=== PATIENT | male | born 1945 | race Two or more races ===

== ENCOUNTER → 2023-06-01 | Outpatient (CLI) | payer MEDICARE, OTHER, SELFPAY ==
--- NOTE | 2023-06-01 08:20 | CDU_ITS ---
Reason For Study: Amaurosis fugax Rt. Velocities/BP Lt. Velocities/BP Prox CCA 92.9/20.1 cm/sec. Prox CCA 83.9/17.9 cm/sec. Mid CCA 58.9/17.3 cm/sec. Mid CCA 69.6/16.8 cm/sec. Dist CCA 47.5/11.6 cm/sec. Dist CCA 61.9/13.5 cm/sec. Prox ICA 43.9/12.5 cm/sec. Prox ICA 52/12.4 cm/sec. Mid ICA 74.4/21.2 cm/sec. Mid ICA 66.3/19 cm/sec. Dist ICA 58.3/21.6 cm/sec. Dist ICA 76.2/23.4 cm/sec. Rt. ICA/CCA = 1.26. Lt. ICA/CCA = 1.09. Prox ECA 98.1/12.4 cm/sec. Prox ECA 70.8/11.9 cm/sec. Rt. Vert. 37.9/10.7 cm/sec. Lt. Vert. 28.7/5.2 cm/sec. Right Extracranial There is homogeneous, smooth atherosclerotic plaque noted in the right common carotid artery. There is heterogeneous, irregular atherosclerotic plaque noted in the right internal carotid artery. There is intimal thickening but no significant atherosclerotic plaque noted in the right external carotid artery. Antegrade flow is noted in the right vertebral artery. Left Extracranial There is intimal thickening but no significant atherosclerotic plaque noted in the left common carotid artery. There is heterogeneous, irregular atherosclerotic plaque noted in the left internal carotid artery. There is heterogeneous, irregular atherosclerotic plaque noted in the left external carotid artery. Antegrade flow is noted in the left vertebral artery. Procedure This is a Carotid Duplex examination using B-mode, color flow and specral Doppler. Carotid Duplex [id number]. Exam performed in department. VL/Carotid Duplex Ultrasound Interpretation Summary Mild (<50%) stenosis right extracranial internal carotid. Mild (<50%) stenosis left extracranial internal carotid. Patent and antegrade vertebrals bilaterally. Ordering Physician: Carmelo Sumner Referring Physician: Whit Wong Performed By: Alba Wang RVT
--- OUTSIDE RECORDS SUMMARY | 2023-06-01 08:20 | XMS RPT_ITS | CCD ---
Author Name Unknown Address [address] [place] [address] Organization [facility] Care Team Providers Care Curriculum Development Specialist Name Role Phone YOSEF BLOOD Babak Unavailable Unavailable *SELF, REFERRED Unavailable Unavailable Augusto Andrew Unavailable Unavailable Shawn Wong Primary Care Provider Shawn Wong Primary Care Provider Shawn Wong Primary Care Provider Melo Springer MD Unavailable Mouck REINFORCING BAR SETTER.Michael LOPEZ Unavailable Mouck REINFORCING BAR SETTER.Michael LOPEZ Unavailable Shawn Wong Primary Care Provider Melo Springer MD Unavailable Mouck REINFORCING BAR SETTER.Michael LOPEZ Unavailable Mouck REINFORCING BAR SETTER.Gokul LOPEZin Unavailable TAZ ZENAB Attending Unavailable SHAWN WONG Primary Care Unavailable TAZ ZENAB Referring Unavailable SHAWN WONG Primary Care Unavailable MAKENZIE VILLARREAL Attending Unavailable Shawn Wong MD Primary Care Provider Allergies Allergy Classification Reported Allergen(s) Allergy Type Date of Onset Reaction(s) Facility (10 sources) oxyCODONE; Translations: [OXYCODONE] Drug Allergy 11-29-2018 [facility] [place] (9 sources) Grass pollen; Translations: [GRASS POLLEN] Propensity to adverse reactions to drug 05-28-2019 [facility] (9 sources) Mold Extract; Translations: [MOLD] Drug Allergy 05-24-2019 Unknown [facility] Medications Current Medications Medication Drug Class(es) Dates Sig (Normalized) Sig (Original) amLODIPine 10 mg oral tablet (1 source) Dihydropyridine Calcium Channel Sumi Start: 05-03-2019 amLODIPine (NORVASC) 10 MG tablet 1 tab(s) 0 05/03/2019 Active B Complex-C (SUPER B COMPLEX PO) (3 sources) B Complex-C (SUP ER B COMPLEX PO) Take by mouth 0 Active Calcium Carbonate (2 sources) Calcium Carbonat e (CALCIUM 600 PO) Take by mouth 0 Active celecoxib 100 mg oral capsule (3 sources) Nonsteroidal Anti-inflammatory Drug take 1 capsule by mouth twice daily celecoxib (CELEBREX) 100 MG capsule Take 100 mg by mouth 2 times daily 0 Active Multiple Vitamins-Minerals (CENTRUM ADULTS PO) (3 sources) Multiple Vitamins-Minerals (CENTRUM ADULTS PO) Take by mouth 0 Active nitroglycerin 0.4 mg sublingual tablet (1 source) Nitrate Vasodilator Start: 03-25-2020 nitroGLYCERIN (NITROSTAT) 0.[address] 1 tablet under the tongue every 5 minutes as needed for Chest pain 25 tablet 3 03/25/2020 Active Saw Sims, Serenoa repens, (SAW PALMETTO BERRIES PO) (2 sources) take 500 mg by mouth once daily Saw Sims, Serenoa repens, (SAW PALMETTO BERRIES PO) Take 500 mg by mouth daily 0 Active Completed/Discontinued Medications Medication Drug Class(es) Dates Sig (Normalized) Sig (Original) acetaminophen 500 mg oral tablet (8 sources) Start: 05-07-2020 take 2 tablets by mouth every eight hours as needed acetaminophen (TYLENOL) 500 mg tablet Take 1,000 mg by mouth every 8 hours as needed for Pain. 0 05/07/2020 Active Problems Active Problems Problem Classification Problem Date Documented Date Episodic/Chronic Cancer of prostate (11 sources) Malignant tumor of prostate; Translations: [Malignant neoplasm of prostate] Onset: 03-28-2017 03-28-2017 Chronic Complication of device; implant or graft (1 source) Arteriosclerosis of coronary artery bypass graft; Translations: [Atherosclerosis of coronary artery bypass graft(s) without angina pectoris] Chronic Coronary atherosclerosis and other heart disease (18 sources) Angina pectoris; Translations: [Stable angina] Onset: 03-25-2020 03-25-2020 Chronic Disorders of lipid metabolism (2 sources) Hyperlipidemia; Translations: [Mixed hyperlipidemia] 03-25-2020 Chronic Essential hypertension (3 sources) Essential hypertension; Translations: [Essential (primary) hypertension] 03-25-2020 Chronic Occlusion or stenosis of precerebral arteries (4 sources) Bilateral stenosis of carotid arteries; Translations: [Occlusion and stenosis of bilateral carotid arteries] Onset: 06-28-2022 Chronic Past or Other Problems Problem Classification Problem Date Documented Da te Episodic/Chronic Other connective tissue disease (8 sources) Tendinitis of right rotator cuff; Translations: [Other shoulder lesions, right shoulder] Onset: 04-01-2015 05-31-2021 Episodic Other connective tissue disease (8 sources) Full thickness rotator cuff tear; Translations: [Complete rotator cuff tear or rupture of right shoulder, not specified as traumatic] Onset: 04-29-2015 05-31-2021 Episodic Other connective tissue disease (8 sources) Bursitis of olecranon of left elbow; Translations: [Olecranon bursitis, left elbow] Onset: 01-04-2017 01-04-2017 Episodic Other connective tissue disease (8 sources) Tendinitis of left rotator cuff; Translations: [Other shoulder lesions, left shoulder] Onset: 11-01-2018 11-01-2018 Episodic Other screening for suspected conditions (not mental disorders or infectious disease) (13 sources) Raised prostate specific antigen; Translations: [Echocardiogram abnormal] Onset: 02-14-2017 05-04-2017 Episodic Results Test Name Value Interpretation Reference Range Facil ity Vital Signs Date Time Vital Sign Value Performing Clinician Ella weiss 07-27-2022 09:44-0500 Body height 177.8 cm Makenzie Villarreal DO Work Phone: [facility] 07-27-2022 09:44-0500 Body weight 85.28 kg Makenzie Villarreal DO Work Phone: [facility] 07-27-2022 09:44-0500 Diastolic blood pressure 87 mm[Hg] Makenzie Villarreal DO Work Phone: [facility] 07-27-2022 09:44-0500 Heart rate 66 /min Makenzie Villarreal DO Work Phone: [facility] 07-27-2022 09:44-0500 Respiratory rate 18 /min Makenzie Villarreal DO Work Phone: [facility] 07-27-2022 09:44-0500 Systolic blood pressure 154 mm[Hg] Makenzie Villarreal DO Work Phone: [facility] 06-28-2022 08:53-0500 Body height 177.8 cm Melo Springer MD Work Phone: [facility] 06-28-2022 08:53-0500 Body weight 84.82 kg Melo Springer MD Work Phone: [facility] 06-28-2022 08:53-0500 Diastolic blood pressure 94 mm[Hg] Melo Springer MD Work Phone: [facility] 06-28-2022 08:53-0500 Heart rate 63 /min Melo Springer MD Work Phone: [facility] 06-28-2022 08:53-0500 SaO2% (BldA) [Mass fraction] 97 % Melo Springer MD Work Phone: [facility] 06-28-2022 08:53-0500 Systolic blood pressure 181 mm[Hg] Melo Springer MD Work Phone: [facility] Encounters Encounter Date Encounter Type Care Provider Facility Start: 03-13-2023 Refill Melo Springer MD Work Phone: [facility] Procedures Date Procedure Procedure Detail Performing Clinician Start: 06-12-2021 Lipid 1996 panel - Serum or Plasma Melo Springer MD Work Phone: Start: 04-30-2020 History of coronary artery bypass grafting S/P CABG x 4 Melo Springer MD Work Phone: Start: 03-25-2020 Basic metabolic panel calcium total Bull Michelle Erika Work Phone: Start: 03-25-2020 Blood count complete auto&auto difrntl wbc Bull Michelle Erika Work Phone: Start: 03-23-2020 ROUTINE EKG TREADMILL STRESS TEST Shawn Wong Work Phone: Start: 06-28-2019 Colonoscopy Melo Springer MD Work Phone: Start: 05-12-2016 History of repair of musculotendinous cuff of shoulder S/P right rotator cuff repair Melo Springer MD Work Phone: Plan of Treatment Date Care Activity Detail Author Start: 06-12-2026 Lipid 1996 panel - Serum or Plasma Lipid Screening [facility] Start: 06-12-2026 LIPID SCREEN LIPID SCREEN [facility] Start: 02-23-2025 DTaP/Tdap/Td vaccine (2 - Td) DTaP/Tdap/Td vaccine (2 - Td) [place], [place] Start: 07-24-[address] COLONOGRAPHY [facility] Start: 06-28-2024 Colonoscopy COLONOSCOPY [facility] Start: 06-28-2024 COLORECTAL CANCER SCREENING COLORECTAL CANCER SCREENING [facility] Start: 06-12-2024 DIABETES SCREEN DIABETES SCREEN [facility] Start: 06-12-2024 Diabetes Screening Diabetes Screening [facility] Start: 07-27-2023 End: 08-26-2023 Duplex scan extracranial art compl bi study US CAROTID BILAT Radiology Routine Carotid stenosis, asymptomatic, bilateral Expected: 07/27/2023, Expires: 08/26/2023 [facility] Work Phone: Immunizations Immunization Date Immunization Notes Care Provider Fa cility 03-21-2022 influenza virus vacc ine, unspecified formulation Melo Springer MD Work Phone: [facility] Payers Date Payer Category Payer Unknown [id number] 2019 Unknown MMO MMO MEDICARE SUPPLEMENT [id number] 2019-Present [phone] [address] [place] [address] Indemnity [id number] 2019 Unknown BCBS [place] - [place] P PO [id number] 2019-Present [address] [place] [address] [id number] 2016 Medicare [id number] 2016 Medicare MEDICARE MEDICAR E PART A AND B xxxxxxxxxx 2016-Present [phone] [address] [address] [place] [address] xxxxxxxxxx [id number] 2016 Unknown BCBS ANTHEM BLUE ACCESS TOM xxxxxxxxxxxx 2016-Present [address] [place] [address] xxxxxxxxxxxx [id number] 2012 Medicare [id number] 2012 Medicare MEDICARE MEDICAR E A AND B [id number] 2012-Present [phone] [place] [address] Medicare [id number] Social History Date Type Detail Facility Start: 05-04-2017 End: 03-23-2020 Tobacco smoking status [facility] Never smoker [place], [place] Sex Assigned At Not on file [place] Start: 04-01-2015 End: 03-25-2020 Tobacco smoking status NHIS Former smoker [facility] End: 06-05-1979 History of tobacco use Current smoker [place], [place] Start: 04-01-2015 End: 03-25-2020 Tobacco use and exposure Never used [place], [place] Start: 03-25-2020 End: 07-27-2022 Alcohol intake Current drinker of alcohol (finding) [place] Start: 03-25-2020 Alcohol Comment occasionally [place] [place] End: 06-05-1979 History of tobacco use Cigarette Smoker [facility] Start: 04-29-2020 History SDOH Financial 5 [facility] Start: 04-29-2020 History SDOH Food Worry 1 [facility] Start: 04-29-2020 History SDOH Transpo rt Med 2 [facility] Start: 1945 Sex Assigned At Male [facility] Start: 05-09-2020 End: 07-27-2022 History of Social function [facility] Work Phone: Start: 05-09-2020 End: 07-27-2022 Tobacco use panel [facility] Work Phone: How hard is it for y ou to pay for the very basics like food, housing, medical care, and heating Not hard at all [facility] Work Phone: (I/We) worried wheth er (my/our) food would run out before (I/we) got money to buy more. Never true [facility] Work Phone: Start: 04-14-2020 Gender identity Identifies as male gender (finding) [facility] Start: 04-14-2020 Sexual orientation Heterosexual (emily berger) [facility] Medical Equipment Procedure Code Equipment Code Equipment Original Text Equipment Identifier Dates Franklin Thk1.65mm Rectangle Ptfe 4.5x6mm Cardiovascular [place] - [id number] Start: 04-28-2020 Plate Sternalock Tomas Bone 8 Hole Sternum - [id number] Start: 04-28-2020 Screw Sternalock Tomas 2.4mm Gold 12mm Bone Self Drill Lock Primary Closure - [id number] Start: 04-28-2020 Clinical Notes 03-14-2022 to 03-13-2023 Telephone Encounter - Marie Cordova LPN - 03/13/2023 11:15 AM EDTTelephone Encounter - Rosalio-Samuel Montana LPN - 01/20/2023 10:19 AM EDTPatient Thai Springer MD - 06/28/2022 10:56 AM EST Note Date & Type Note Facility 03-13-2023 Miscellaneous Notes Patient's request for medication is as follows: Requested Prescriptions Pending Prescriptions Disp Refills metoprolol tartrate, short acting, (LOPRESSOR) 50 mg tablet [Pharmacy Med Name: METOPROLOL TARTRATE 50 MG Tablet] 180 tablet 3 Sig: TAKE 1 TABLET EVERY 12 HOURS Last seen 06/28/2022. On recall list for 06/2023. Prescription(s) as above. Please process accordingly. Marie Cordova LPN documented in this encounter [facility] 01-20-2023 Miscellaneous Notes Patient's request for medication is as follows: Requested Prescriptions Pending Prescriptions Disp Refills metoprolol tartrate, short acting, (LOPRESSOR) 50 mg tablet [Pharmacy Med Name: METOPROLOL TARTRATE 50 MG Tablet] 180 tablet 1 Sig: TAKE 1 TABLET EVERY 12 HOURS Last seen 06/28/2022. Follow up scheduled for 06/2023. Prescription(s) as above. Please process accordingly. Samuel Spence LPN documented in this encounter [facility] 07-27-2022 Note HNO ID: [id number] Author: Makenzie Villarreal, DO Service: ? Author Type: Physician Type: Progress Notes Filed: 07/27/2022 4:59 PM Note Text: [facility] [place] DEPARTMENT OF VASCULAR SURGERY OUTPATIENT VISIT DATE July 27, 2022 OUTPATIENT VISIT TYPE CONSULTATION SERVICE DATE: 07/27/2022 SERVICE TIME: 9:35 AM PRIMARY CARE PHYSICIAN: Shawn Wong MD REFERRING PROVIDER: Melo Springer [address] [facility] [address] [facility] [address] Consult requested for an opinion regarding the evaluation and treatment of the above. My final impression and recommendations will be communicated back to the requesting physician by way of the shared medical record or letter via US mail. CHIEF COMPLAINT: carotid stenosis HISTORY OF PRESENT ILLNESS: Vascular consultation at the request of Dr. Melo Springer. A copy of this consultation note will be provided to the requesting physician by way of shared Medical record or letter to requesting physician via US mail. Mr. Stark is a 76 year old male who is seen today for bilateral carotid stenosis. Patient had multiple screening test performed in [place] with results listed below. Had screening carotid duplex on 06/09/22 which showed bilateral carotid plaque which was read as mild to moderate disease. Right ICA PSV 52.2/EDV 15,4. Left ICA PSV 49.8/ EDV 11.3. Had aortic screening ultrasound which showed normal aorta without evidence of ectasia or aneurysm. Has bilateral normal RODRIGO 1.2. In regards to his carotid stenosis this is not significant and is less than 50% bilaterally based on the velocities. Patient denies symptoms of TIA, stroke, or amaurosis. Patient has a history of CAD s/p 4vCABG in 2019. Denies chest pain or SOB. Denies symptoms of claudication, rest pain, or tissue loss. Takes aspirin and statin daily. No anticoagulation. Former smoker. PAST MEDICAL HISTORY Diagnosis Date Abnormal stress test Arthritis CAD (coronary artery disease) CAD (coronary artery disease) Carotid artery stenosis Complete tear of right rotator cuff 04/29/2015 Diverticulosis FHx: colon cancer Brother HTN (hypertension) Joint pain Osteoarthritis Prostate cancer (HCC) Sleep deprivation Status post shoulder surgery 05/12/2016 PAST SURGICAL HISTORY Procedure Laterality Date ARTHRP ACETBLR/PROX FEM PROSTC AGRFT/ALGRFT Bilateral CABG (4) VEIN GRAFTS AND ARTERIAL GRAFT(S) 04/28/2020 CATARACT EXTRACTION HX 05/2017 COLONOSCOPY 07/26/2012 Diverticulosis. No specimens. COLONOSCOPY 06/29/2006 Diverticulosis. No specimens. COLONOSCOPY 06/28/2019 Diverticulosis,significant looping,Stricture in the sigmoid colon. HAND SURGERY HX Left 1992 Hand PAST SURGICAL HISTORY OF 2013 Sinoplasty PAST SURGICAL HISTORY OF 07/10/2017 Prostatectomy-radical. Dr. Hector Thomson. REVISE MEDIAN N/CARPAL TUNNEL SURG Right 05/26/2021 SHOULDER SURGERY HX Right 05/03/2016 SOCIAL HISTORY: Social History Tobacco Use Smoking status: Former Types: Cigarettes Quit date: 06/05/1979 Years since quittin.1 Smokeless tobacco: Never Vaping Use Vaping Use: Never used Substance Use Topics Alcohol use: Yes Comment: Occasionally Drug use: Not Currently Comment: Used in the past. FAMILY HISTORY Problem Relation Age of Onset COPD Mother Heart Attack Mother Cancer Father Cancer Brother Heart disease Maternal Grandfather Aneurysm Paternal Grandfather MEDICATIONS: metoprolol tartrate, short acting, (LOPRESSOR) 50 mg tablet Take 1 tablet by mouth every 12 hours. aspirin, enteric coated (ASPIRIN, ENTERIC COATED) 81 mg EC tablet Take 1 tablet by mouth once daily. Cholecalciferol, Vitamin D3, 50 mcg (2,000 unit) cap Take 1 capsule by mouth once daily. atorvastatin (LIPITOR) 40 mg tablet Take 1 tablet by mouth once daily. acetaminophen (TYLENOL) 500 mg tablet Take 1,000 mg by mouth every 8 hours as needed for Pain. zinc sulfate 220 (50) mg capsule Take 50 mg by mouth once daily. B Complex Vitamins capsule Take 1 tablet by mouth once daily. ascorbic acid, vitamin C, (VITAMIN C) 500 mg tablet Take 500 mg by mouth once daily. [DISCONTINUED] cyanocobalamin (VITAMIN B-12) 100 mcg tab 1 tab(s) ALLERGIES: ALLERGIES Allergen Reactions Grass Pollen Unknown Mold Unknown Oxycodone Rash Pt reports that the rash only occurs if he takes the med for extended periods. PHYSICAL EXAM: VITALS: BP 154/87 Pulse 66 Resp 18 Ht 5' 10 (1.78m) Wt 188 lb (85.3kg) BMI 26.98 kg/(m2). General: Alert and oriented, No acute distress HEENT: EOMI, No carotid bruit Cardiovascular: Pulse regular. Lungs: Normal breath sounds, no wheezes. Abdomen: Soft, non-tender. Extremities: No edema, no chronic skin changes, no ulceration Neurological: Normal cognition and motor skills. No weakness or sensory deficit. Vascular: bilateral radial palpable, pedal pulses palp Diagnostic tests reviewed for today's visit: (more content not included)... [facility] 07-27-2022 Instructions Makenzie Villarreal DO - 07/27/2022 10:10 AM EST You have mild carotid disease with bilateral < 50% stenosis based on ultrasound velocities. Recommend best medical therapy with aspirin and statin. Follow up in 1 year with repeat carotid ultrasound. Information on Stroke: 1. F.A.S.T: F - Facial Droop A - Arms: Raise both arms, one arm will drift downward S - Speech: Slurred or strange sounds when speaking T - Time: Call 911 immediately 2. If you have new or worsening stroke symptoms: Call 911 3. Examples of symptoms: A. Sudden weakness or numbness B. Sudden difficulty seeing C. Sudden confusion or slurred speech D. Sudden problems with balance, coordination E. Sudden severe headache, with no known cause F. Difficulty swallowing 4. Know your personal risks for stroke: Age, sex, race, family history, high cholesterol, alcohol intake, weight, inactive lifestyle, carotid or coronary artery disease. 5. Can you make changes in your personal risks? How? 6. Know what medications you are taking to avoid another stroke. documented in this encounter [facility] 07-27-2022 History of Presen t illness Narrative Images from the original note were not included. [facility] [place] DEPARTMENT OF VASCULAR SURGERY OUTPATIENT VISIT DATE July 27, 2022 OUTPATIENT VISIT TYPE CONSULTATION SERVICE DATE: 07/27/2022 SERVICE TIME: 9:35 AM PRIMARY CARE PHYSICIAN: Shawn Wong MD REFERRING PROVIDER: Melo Springer [address] [facility] [address] [facility] [address] Consult requested for an opinion regarding the evaluation and treatment of the above. My final impression and recommendations will be communicated back to the requesting physician by way of the shared medical record or letter via US mail. CHIEF COMPLAINT: carotid stenosis HISTORY OF PRESENT ILLNESS: Vascular consultation at the request of Dr. Melo Springer. A copy of this consultation note will be provided to the requesting physician by way of shared Medical record or letter to requesting physician via US mail. Mr. Stark is a 76 year old male who is seen today for bilateral carotid stenosis. Patient had multiple screening test performed in [place] with results listed below. Had screening carotid duplex on 06/09/22 which showed bilateral carotid plaque which was read as mild to moderate disease. Right ICA PSV 52.2/EDV 15,4. Left ICA PSV 49.8/ EDV 11.3. Had aortic screening ultrasound which showed normal aorta without evidence of ectasia or aneurysm. Has bilateral normal RODRIGO 1.2. In regards to his carotid stenosis this is not significant and is less than 50% bilaterally based on the velocities. Patient denies symptoms of TIA, stroke, or amaurosis. Patient has a history of CAD s/p 4vCABG in 2019. Denies chest pain or SOB. Denies symptoms of claudication, rest pain, or tissue loss. Takes aspirin and statin daily. No anticoagulation. Former smoker. PAST MEDICAL HISTORY Diagnosis Date Abnormal stress test Arthritis CAD (coronary artery disease) CAD (coronary artery disease) Carotid artery stenosis Complete tear of right rotator cuff 04/29/2015 Diverticulosis FHx: colon cancer Brother HTN (hypertension) Joint pain Osteoarthritis Prostate cancer (HCC) Sleep deprivation Status post shoulder surgery 05/12/2016 PAST SURGICAL HISTORY Procedure Laterality Date ARTHRP ACETBLR/PROX FEM PROSTC AGRFT/ALGRFT Bilateral CABG (4) VEIN GRAFTS & ARTERIAL GRAFT(S) 04/28/2020 CATARACT EXTRACTION HX 05/2017 COLONOSCOPY 07/26/2012 Diverticulosis. No specimens. COLONOSCOPY 06/29/2006 Diverticulosis. No specimens. COLONOSCOPY 06/28/2019 Diverticulosis,significant looping,Stricture in the sigmoid colon. HAND SURGERY HX Left 1992 Hand PAST SURGICAL HISTORY OF 2013 Sinoplasty PAST SURGICAL HISTORY OF 07/10/2017 Prostatectomy-radical. Dr. Hector Thomson. REVISE MEDIAN N/CARPAL TUNNEL SURG Right 05/26/2021 SHOULDER SURGERY HX Right 05/03/2016 SOCIAL HISTORY: Social History Tobacco Use Smoking status: Former Types: Cigarettes Quit date: 06/05/1979 Years since quittin.1 Smokeless tobacco: Never Vaping Use Vaping Use: Never used Substance Use Topics Alcohol use: Yes Comment: Occasionally Drug use: Not Currently Comment: Used in the past. FAMILY HISTORY Problem Relation Age of Onset COPD Mother Heart Attack Mother Cancer Father Cancer Brother Heart disease Maternal Grandfather Aneurysm Paternal Grandfather MEDICATIONS: metoprolol tartrate, short acting, (LOPRESSOR) 50 mg tablet Take 1 tablet by mouth every 12 hours. aspirin, enteric coated (ASPIRIN, ENTERIC COATED) 81 mg EC tablet Take 1 tablet by mouth once daily. Cholecalciferol, Vitamin D3, 50 mcg (2,000 unit) cap Take 1 capsule by mouth once daily. atorvastatin (LIPITOR) 40 mg tablet Take 1 tablet by mouth once daily. acetaminophen (TYLENOL) 500 mg tablet Take 1,000 mg by mouth every 8 hours as needed for Pain. zinc sulfate 220 (50) mg capsule Take 50 mg by mouth once daily. B Complex Vitamins capsule Take 1 tablet by mouth once daily. ascorbic acid, vitamin C, (VITAMIN C) 500 mg tablet Take 500 mg by mouth once daily. [DISCONTINUED] cyanocobalamin (VITAMIN B-12) 100 mcg tab 1 tab(s) ALLERGIES: ALLERGIES Allergen Reactions Grass Pollen Unknown Mold Unknown Oxycodone Rash Pt reports that the rash only occurs if he takes the med for extended periods. PHYSICAL EXAM: VITALS: BP 154/87 Pulse 66 Resp 18 Ht 5' 10 (1.78m) Wt 188 lb (85.3kg) BMI 26.98 kg/(m^2). General: Alert and oriented, No acute distress HEENT: EOMI, No carotid bruit Cardiovascular: Pulse regular. Lungs: Normal breath sounds, no wheezes. Abdomen: Soft, non-tender. Extremities: No edema, no chronic skin changes, no ulceration Neurological: Normal cognition and motor skills. No weakness or sensory deficit. Vascular: bilateral radial palpable, pedal pulses palp Diagnostic tests reviewed for today's visit: Carotid duplex Aorta ultrasound RODRGIO IMPRESSION: Mr. Stark is a 76 year old male with bilateral asymptomatic carotid stenosis < 50%. PLAN and RECOMMENDATIONS: - We had an extensive discussion about carotid stenosis, risk factors, rationale for treatment and types of treatment including medical mgmt, carotid stent and carotid endarterectomy. We discussed that for patients with asymptomatic disease indication for repair would be stenosis > 80%. - continue best medical therapy with aspirin and statin - We reviewed the symptoms of TIA/stroke including weakness or numbness in an extremity, slurred speech, facial droop, amaurosis fugax, and the pt does not have any symptoms. The pt understands that he/she should call or go to the ED should any of these symptoms develop and that delay could result in stroke. - follow up in 1 year with repeat carotid ultrasound prior to visit I spent a total of 45 minutes on the date of the service which included preparing to see the patient, [id number] patient care, completing clinical documentation, obtaining and/or reviewing separately obtained history, performing a medically appropriate examination, counseling and educating the patient/family/caregiver, communicating with other HCPs (not separately reported), independently interpreting results (not separately reported) and communicating results to the patient/family/caregiver. SIGNATURE: Makenzie Villarreal DO PATIENT NAME: Elder Stark DATE: July 27, 2022 TIME: 9:35 AM documented in this encounter [facility] 06-30-2022 Miscellaneous Notes I spoke to clerical at [place] location and requested US be scanned into chart so it can be reviewed by vascular. Moraima Cazares LPN Images from the original note were not included. Melo Springer MD You 3 minutes ago (3:50 PM) Yes. It was done in [place]. I left the report in our pile of to be scanned results Vascular office called regarding referral. Asking if patient had Carotid US in a different location? Referral for Abnormal carotid artery duplex ultrasound and she can not locate results. Moraima Cazares LPN documented in this encounter [facility] 06-30-2022 Miscellaneous Notes Spoke with Referring office-they were checking into US CAROTID Reprt & Images, I then spoke with [facility] Cardiac Images, they do not see any US CAROTID. They are also looking into this . Schedule with Dr Villarreal New Patient Referral from Melo Springer [phone] for Carotid Artery Stenosis, Bilateral with EXTERNAL [facility] US CAROTID DUPLEX BILAT MAYBE, [place] can not find in system *Dr Bowman Patient* documented in this encounter [facility] 06-28-2022 Note HNO ID: [id number] Author: Melo Springer MD Service: ? Author Type: Physician Type: Progress Notes Filed: 06/28/2022 11:01 AM Note Text: Cardiology clinic visit note HPI: Mr. Stark is a 75 year old male with history of coronary artery disease status post CABG (SANCHEZ-LAD, SVG-diagonal, SVG-LCx, SVG-RCA ) on 04/28/2020, essential hypertension, hyperlipidemia and prostate cancer status post prostatectomy. Patient is here for a follow-up visit today. He is doing well from a cardiac standpoint. He recently had carotid artery duplex ultrasound at [facility] for screening. He was noted to have increased velocities bilaterally suggestive of mild to moderate disease and was told to follow-up with his physician. He has not had any stroke. He denies having any syncope or presyncope. He continues to have an active lifestyle. He has not had any episodes of chest pain at rest or with exercise. He reports compliance to all his medications. Summary of cardiac history Patient was seen in cardiology clinic for an abnormal stress test. Heart catheterization revealed multivessel coronary artery disease. Echocardiogram revealed normal biventricular systolic function with no significant valvular abnormalities. He underwent CABG on 04/28/2020. Postop course was complicated by urinary retention and bleeding from large pleural tube. He also had atrial fibrillation with RVR that was treated with beta-blockers. He remained in normal sinus rhythm afterwards. PAST MEDICAL HISTORY Diagnosis Date Abnormal stress test Arthritis CAD (coronary artery disease) CAD (coronary artery disease) Complete tear of right rotator cuff 04/29/2015 Diverticulosis FHx: colon cancer Brother HTN (hypertension) Joint pain Osteoarthritis Prostate cancer (HCC) Sleep deprivation Status post shoulder surgery 05/12/2016 PAST SURGICAL HISTORY Procedure Laterality Date ARTHRP ACETBLR/PROX FEM PROSTC AGRFT/ALGRFT Bilateral CABG (4) VEIN GRAFTS AND ARTERIAL GRAFT(S) 04/28/2020 CATARACT EXTRACTION HX 05/2017 COLONOSCOPY 07/26/2012 Diverticulosis. No specimens. COLONOSCOPY 06/29/2006 Diverticulosis. No specimens. COLONOSCOPY 06/28/2019 Diverticulosis,significant looping,Stricture in the sigmoid colon. HAND SURGERY HX Left 1992 Hand PAST SURGICAL HISTORY OF 2013 Sinoplasty PAST SURGICAL HISTORY OF 07/10/2017 Prostatectomy-radical. Dr. Hector Thomson. SHOULDER SURGERY HX Right 05/03/2016 SOCIAL HISTORY Social History Tobacco Use Smoking status: Former Types: Cigarettes Quit date: 06/05/1979 Years since quittin.0 Smokeless tobacco: Never Vaping Use Vaping Use: Never used Substance Use Topics Alcohol use: Yes Comment: Occasionally Drug use: Not Currently Comment: Used in the past. FAMILY HISTORY Problem Relation Age of Onset COPD Mother Heart Attack Mother Cancer Father Cancer Brother Heart disease Maternal Grandfather Aneurysm Paternal Grandfather Family history was reviewed ALLERGIES Allergen Reactions Grass Pollen Unknown Mold Unknown Oxycodone Rash Pt reports that the rash only occurs if he takes the med for extended periods. MEDICATIONS: metoprolol tartrate, short acting, (LOPRESSOR) 50 mg tablet Take 1 tablet by mouth every 12 hours. aspirin, enteric coated (ASPIRIN, ENTERIC COATED) 81 mg EC tablet Take 1 tablet by mouth once daily. Cholecalciferol, Vitamin D3, 50 mcg (2,000 unit) cap Take 1 capsule by mouth once daily. atorvastatin (LIPITOR) 40 mg tablet Take 1 tablet by mouth once daily. acetaminophen (TYLENOL) 500 mg tablet Take 1,000 mg by mouth every 8 hours as needed for Pain. zinc sulfate 220 (50) mg capsule Take 50 mg by mouth once daily. B Complex Vitamins capsule Take 1 tablet by mouth once daily. ascorbic acid, vitamin C, (VITAMIN C) 500 mg tablet Take 500 mg by mouth once daily. [DISCONTINUED] cyanocobalamin (VITAMIN B-12) 100 mcg tab 1 tab(s) REVIEW OF SYSTEMS: GENERAL: Negative for:Weight loss and Weight gain HEENT: Negative for:Nosebleeds RESPIRATORY: Negative for:Shortness of breath GASTROINTESTINAL: Negative for:Blood in stool MUSCULOSKELETAL: Negtive for: Muscle or joint pain, stiffness, Joint swelling SKIN: No rash HEMATOLOGICAL/LYMPHATIC: Negative for: Easy bruising and Easy bleeding CARDIOVASCULAR: As stated in HPI. 10 system review negative except as stated in HPI PHYSICAL EXAMINATION: BP 181/94 (BP Site: Left Arm, BP Position: Sitting, BP Cuff Size: Large Adult) Pulse 63 Ht 5' 10 (1.778 m) Wt 187 lb (84.8 kg) SpO2 97% BMI 26.83 kg/m? General: Well appearing, appears stated age and in no acute distress. Psych: Normal Affect. Alert and oriented to person, place and time. HEENT: Sclera are anicteric, conjunctive IV are moist without subconjunctival hemorrhage. PERRLA. Head is atraumatic. Oropharynx clear with moist mucous membranes. Neck: Neck is supple. No ju (more content not included)... [facility] 06-28-2022 History of Presen t illness Narrative Cardiology clinic visit note HPI: Mr. Stark is a 75 year old male with history of coronary artery disease status post CABG (SANCHEZ-LAD, SVG-diagonal, SVG-LCx, SVG-RCA ) on 04/28/2020, essential hypertension, hyperlipidemia and prostate cancer status post prostatectomy. Patient is here for a follow-up visit today. He is doing well from a cardiac standpoint. He recently had carotid artery duplex ultrasound at [facility] for screening. He was noted to have increased velocities bilaterally suggestive of mild to moderate disease and was told to follow-up with his physician. He has not had any stroke. He denies having any syncope or presyncope. He continues to have an active lifestyle. He has not had any episodes of chest pain at rest or with exercise. He reports compliance to all his medications. Summary of cardiac history Patient was seen in cardiology clinic for an abnormal stress test. Heart catheterization revealed multivessel coronary artery disease. Echocardiogram revealed normal biventricular systolic function with no significant valvular abnormalities. He underwent CABG on 04/28/2020. Postop course was complicated by urinary retention and bleeding from large pleural tube. He also had atrial fibrillation with RVR that was treated with beta-blockers. He remained in normal sinus rhythm afterwards. PAST MEDICAL HISTORY Diagnosis Date Abnormal stress test Arthritis CAD (coronary artery disease) CAD (coronary artery disease) Complete tear of right rotator cuff 04/29/2015 Diverticulosis FHx: colon cancer Brother HTN (hypertension) Joint pain Osteoarthritis Prostate cancer (HCC) Sleep deprivation Status post shoulder surgery 05/12/2016 PAST SURGICAL HISTORY Procedure Laterality Date ARTHRP ACETBLR/PROX FEM PROSTC AGRFT/ALGRFT Bilateral CABG (4) VEIN GRAFTS & ARTERIAL GRAFT(S) 04/28/2020 CATARACT EXTRACTION HX 05/2017 COLONOSCOPY 07/26/2012 Diverticulosis. No specimens. COLONOSCOPY 06/29/2006 Diverticulosis. No specimens. COLONOSCOPY 06/28/2019 Diverticulosis,significant looping,Stricture in the sigmoid colon. HAND SURGERY HX Left 1992 Hand PAST SURGICAL HISTORY OF 2013 Sinoplasty PAST SURGICAL HISTORY OF 07/10/2017 Prostatectomy-radical. Dr. Hector Thomson. SHOULDER SURGERY HX Right 05/03/2016 SOCIAL HISTORY Social History Tobacco Use Smoking status: Former Types: Cigarettes Quit date: 06/05/1979 Years since quittin.0 Smokeless tobacco: Never Vaping Use Vaping Use: Never used Substance Use Topics Alcohol use: Yes Comment: Occasionally Drug use: Not Currently Comment: Used in the past. FAMILY HISTORY Problem Relation Age of Onset COPD Mother Heart Attack Mother Cancer Father Cancer Brother Heart disease Maternal Grandfather Aneurysm Paternal Grandfather Family history was reviewed ALLERGIES Allergen Reactions Grass Pollen Unknown Mold Unknown Oxycodone Rash Pt reports that the rash only occurs if he takes the med for extended periods. MEDICATIONS: metoprolol tartrate, short acting, (LOPRESSOR) 50 mg tablet Take 1 tablet by mouth every 12 hours. aspirin, enteric coated (ASPIRIN, ENTERIC COATED) 81 mg EC tablet Take 1 tablet by mouth once daily. Cholecalciferol, Vitamin D3, 50 mcg (2,000 unit) cap Take 1 capsule by mouth once daily. atorvastatin (LIPITOR) 40 mg tablet Take 1 tablet by mouth once daily. acetaminophen (TYLENOL) 500 mg tablet Take 1,000 mg by mouth every 8 hours as needed for Pain. zinc sulfate 220 (50) mg capsule Take 50 mg by mouth once daily. B Complex Vitamins capsule Take 1 tablet by mouth once daily. ascorbic acid, vitamin C, (VITAMIN C) 500 mg tablet Take 500 mg by mouth once daily. [DISCONTINUED] cyanocobalamin (VITAMIN B-12) 100 mcg tab 1 tab(s) REVIEW OF SYSTEMS: GENERAL: Negative for:Weight loss and Weight gain HEENT: Negative for:Nosebleeds RESPIRATORY: Negative for:Shortness of breath GASTROINTESTINAL: Negative for:Blood in stool MUSCULOSKELETAL: Negtive for: Muscle or joint pain, stiffness, Joint swelling SKIN: No rash HEMATOLOGICAL/LYMPHATIC: Negative for: Easy bruising and Easy bleeding CARDIOVASCULAR: As stated in HPI. 10 system review negative except as stated in HPI PHYSICAL EXAMINATION: BP 181/94 (BP Site: Left Arm, BP Position: Sitting, BP Cuff Size: Large Adult) Pulse 63 Ht 5' 10 (1.778 m) Wt 187 lb (84.8 kg) SpO2 97% BMI 26.83 kg/m General: Well appearing, appears stated age and in no acute distress. Psych: Normal Affect. Alert and oriented to person, place and time. HEENT: Sclera are anicteric, conjunctive IV are moist without subconjunctival hemorrhage. PERRLA. Head is atraumatic. Oropharynx clear with moist mucous membranes. Neck: Neck is supple. No jugular venous distention, no carotid bruits. Lungs: Clear to auscultation bilaterally, no wheezing or rhonchi. Heart: S1, S2 normal, no murmur Abdomen. Soft, nontender, no organomegaly. Extremities: No peripheral edema Skin. Normal temperature, turgor and texture. No rashes, ulcers or subcutaneous nodules noted. Neuro: Grossly nonfocal LABS CMP: Glucose 94 06/12/2021 BUN 17 06/12/2021 Creatinine 1.20 06/12/2021 Sodium 145 06/12/2021 Potassium 4.7 06/12/2021 Chloride 106 06/12/2021 CO2 28 06/12/2021 Protein, Total 7.1 06/12/2021 Albumin 4.4 06/12/2021 Calcium 9.2 06/12/2021 Alkaline Phosphatase 74 06/12/2021 Bilirubin, Total 0.7 06/12/2021 AST 26 06/12/2021 ALT 24 06/12/2021 EK lead EKG Dated 03/13/2020 shows normal sinus rhythm. MA and QT intervals are normal. There are no ST segment changes suggestive of ischemia or infarction. Echo 04/22/20 - The left ventricle is normal in size. Left ventricular systolic function is normal. EF = 58 5% (2D biplane) Grade I left ventricular diastolic dysfunction. - The right ventricle is normal in size. Right ventricular systolic function is normal. - The patient has not had a prior CC echocardiographic exam for comparison. Myocardial perfusion stress test with exercise 07/10/2020 negative for ischemia or infarction. Impression/Recommendations Coronary artery disease status post CABG April 2020 Continue on aspirin 81 mg daily and metoprolol 50 mg twice a day. Abnormal carotid artery duplex ultrasound Concern for carotid artery stenosis Patient is already on appropriate medications including aspirin and statin. Will place consult for vascular surgery. May need a CTA neck in future. Mixed hyperlipidemia Continue on atorvastatin 40 mg daily. Essential hypertension Elevated today but has been better controlled in past. We will ask patient to check blood pressures regularly at home and [facility] We will make adjustments at that time. Follow-up in 1 year Some elements were copied from my note dated 06/14/21 , which have been updated where appropriate, and all reflect current medical decision making from TODAY Melo Springer MD, [facility] Cardiovascular Medicine Pager: [phone] June 28, 2022 documented in this encounter [facility] 06-28-2022 Nurse Note No cardiac concerns today documented in this encounter [facility] 03-14-2022 Miscellaneous Notes Patient's request for medication is as follows: Requested Prescriptions Pending Prescriptions Disp Refills metoprolol tartrate, short acting, (LOPRESSOR) 50 mg tablet 180 tablet 3 Sig: Take 1 tablet by mouth every 12 hours. Last seen 06/14/2021. Patient is on recall list for 06/14/2022. Prescription(s) as above. Please process accordingly. Moraima Cazares LPN documented in this encounter [facility] Diagnosis Carotid stenosis, asymptomatic, bilateral- Primary [facility] (narrative)* Diagnostic Procedure Only (Routine) - Pending Review Specialty Diagnoses / Procedures Referred By Calvin ortez Referred To Contact US IMAGING Diagnoses Carotid stenosis, asymptomatic, bilateral Procedures US CAROTID BILAT Makenzie Villarreal DO [address] [place] [address] Us Imaging Referral ID Status Reason Start Date Expiration Date Visits Requested Visits Authorized [id number] Pending Review Auto-Generat ed Referral 07/27/2023 08/26/2023 1 1 [facility] Summary Purpose Family History No Family History Records FoundNo Family History Records FoundNo Family History Records FoundNo Family History Records FoundNo Family History Records Found Advance Directives Documents on File Type Date 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 Advance Directives and Living Will Power of [employer] Superintendent Documents on File Type Date 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 ACP-Advance Directive ACP-Power of [employer] Superintendent Latest Code Status on File Code Status Date Activated Date Inactivated Comments Full Code 05/09/2020 1:53 PM Latest Code Status on File Code Status Date Activated Date Inactivated Comments Full Code 05/09/2020 1:53 PM Latest Code Status on File Code Status Date Activated Date Inactivated Comments Full Code 05/09/2020 1:53 PM Assessments Diagnosis Essential hypertension Unspecified essential hypertension Abnormal stress ECG Other nonspecific abnormal cardiovascular system function study Angina pectoris (HCC) Other and unspecified angina pectoris Reason for Referral Specialty Diagnoses / Procedures Referred By Calvin t Referred To Contact Vascular Surgery Diagnoses Bilateral carotid artery stenosis Procedures CONSULT TO VASCULAR SURGERY OFFICE/OUTPATIENT NEW HIGH MDM 60-74 MINUTES Melo Springer MD [address] [place] [address] Makenzie Villarreal, DO [address] [place] [address] Referral ID Status Reason Start Date Expiration Date Visits Requested Visits Authorized [id number] Authorized PCP Requested Referral 06/28/2022 06/28/2023 1 1 Additional Source Comments (unrecognized sect ion and content) No Status Records FoundNo Status Records FoundNo Status Records FoundNo Status Records FoundNo Status Records Found INFORMATION SOURCE (unrecogn ized section and content) DATE CREATED AUTHOR AUTHOR'S ORGANIZ ATION 04/12/2020 [facility] DATE CREATED AUTHOR AUTHOR'S ORGANIZ ATION 12/18/2020 [facility] DATE CREATED AUTHOR AUTHOR'S ORGANIZ ATION 12/08/2021 [facility] DATE CREATED AUTHOR AUTHOR'S ORGANIZ ATION 07/28/2022 [facility] Source Comments (unrecognize d section and content) In the event this informatio n is protected by the Federal Confidentiality of Alcohol and Drug Abuse Patient Records regulations: The Federal rules restrict any use of the information to criminally investigate or prosecute any alcohol or drug abuse patient.[facility] the event this information is protected by the Federal Confidentiality of Alcohol and Drug Abuse Patient Records regulations: The Federal rules restrict any use of the information to criminally investigate or prosecute any alcohol or drug abuse patient.[facility] the event this information is protected by the Federal Confidentiality of Alcohol and Drug Abuse Patient Records regulations: The Federal rules restrict any use of the information to criminally investigate or prosecute any alcohol or drug abuse patient.[facility] the event this information is protected by the Federal Confidentiality of Alcohol and Drug Abuse Patient Records regulations: The Federal rules restrict any use of the information to criminally investigate or prosecute any alcohol or drug abuse patient.[facility] the event this information is protected by the Federal Confidentiality of Alcohol and Drug Abuse Patient Records regulations: The Federal rules restrict any use of the information to criminally investigate or prosecute any alcohol or drug abuse patient.[facility] the event this information is protected by the Federal Confidentiality of Alcohol and Drug Abuse Patient Records regulations: The Federal rules restrict any use of the information to criminally investigate or prosecute any alcohol or drug abuse patient.[facility] the event this information is protected by the Federal Confidentiality of Alcohol and Drug Abuse Patient Records regulations: The Federal rules restrict any use of the information to criminally investigate or prosecute any alcohol or drug abuse patient.[facility] the event this information is protected by the Federal Confidentiality of Alcohol and Drug Abuse Patient Records regulations: The Federal rules restrict any use of the information to criminally investigate or prosecute any alcohol or drug abuse patient.[facility] Reason for Visit (unrecogniz ed section and content) Reason Comments Cardiology Follow Up Chest pain 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 Reason Comments Consult [facility] REFERRAL to Dr Rosa bruno Reason Comments stable angina Reason Comments Refill Request Care Teams (unrecognized sec tion and content) Curriculum Development Specialist Relationship Specialty Start Date End Date Shawn Wong [address] [place] [address] PCP - General Family Medicine 06/09/17 Melo Springer MD [address] [facility] [address] [place], [place] [id number] Cardiology 04/24/20 Michael Jauregui APRN.TECHNICIAN AUTOMATIC [address] [place] [address] Referring Family Medicine 05/04/20 Michael Jauregui APRN.TECHNICIAN AUTOMATIC [address] [place] [address] Home Care Provider Family Medicine 05/04/20 Curriculum Development Specialist Relationship Specialty Start Date End Date Shawn Wong [address] [place] [address] PCP - General Family Medicine 06/09/17 Melo Springer MD [address], [address] [place] [address] Cardiology 04/24/20 Michael Jauregui APRN.TECHNICIAN AUTOMATIC [address], [address] [place] [address] Referring Family Medicine 05/04/20 Michael Jauregui APRN.TECHNICIAN AUTOMATIC [address], [address] [place] [address] Home Care Provider Family Medicine 05/04/20 Curriculum Development Specialist Relationship Specialty Start Date End Date Shawn Wong [address] [place] [address] PCP - General Family Medicine 06/09/17 Melo Springer MD [address], [address] [place] [address] Cardiology 04/24/20 Michael Jauregui APRN.TECHNICIAN AUTOMATIC [address], [address] [place] [address] Referring Family Medicine 05/04/20 Michael Jauregui APRN.TECHNICIAN AUTOMATIC [address] [place] [address] Home Care Provider Family Medicine 05/04/20 Curriculum Development Specialist Relationship Specialty Start Date End Date Shawn Wong [address] [place] [address] PCP - General Family Medicine 06/09/17 Melo Springer MD [address], [address] [place] [address] Cardiology 04/24/20 Michael Jauregui, REINFORCING BAR SETTER.TECHNICIAN AUTOMATIC [address] [place] [address] Referring Family Medicine 05/04/20 Michael Jauregui, REINFORCING BAR SETTER.TECHNICIAN AUTOMATIC [address] [place] [address] Home Care Provider Family Medicine 05/04/20 Curriculum Development Specialist Relationship Specialty Start Date End Date Shawn Wong [address] [place] [address] PCP - General Family Medicine 06/09/17 Melo Springer MD [address], [address] [place] [address] Cardiology 04/24/20 Michael Jauregui, REINFORCING BAR SETTER.TECHNICIAN AUTOMATIC [address] [place] [address] Referring Family Medicine 05/04/20 Michael Jauregui REINFORCING BAR SETTER.TECHNICIAN AUTOMATIC [address] [place] [address] Home Care Provider Family Medicine 05/04/20 Curriculum Development Specialist Relationship Specialty Start Date End Date Shawn Wong MD [address] [place] [address] PCP - General Family Medicine 06/09/17 Melo Springer MD [address] [place] [address] Cardiology 04/24/20 Michael Jauregui APRN.TECHNICIAN AUTOMATIC [address] [place] [address] Referring Family Medicine 05/04/20 Michael Jauregui, REINFORCING BAR SETTER.TECHNICIAN AUTOMATIC [address] [place] [address] Home Care Provider Family Medicine 05/04/20 FOR RECORDS PERTAINING TO PATIENTS WHO ARE OR HAVE BEEN ENROLLED IN A CHEMICAL DEPENDENCY/SUBSTANCEABUSE PROGRAM, SOME INFORMATION MAY BE OMITTED. This clinical summary was aggregated from multiple sources. Caution should be exercised in using it in the provision of clinical care. This summary normalizes information from multiple sources, and as a consequence, information in this document may materially change the coding, format and clinical context of patient data. In addition, data may be omitted in some cases. CLINICAL DECISIONS SHOULD BE BASED ON THE PRIMARY CLINICAL RECORDS. [employer] [facility]. provides no warranty or guarantee of the accuracy or completeness of information in this document.
== END | disposition home or self-care (01) ==
LOC: CVS 08:18
PROVIDERS: PCP Family Medicine; Referring Provider Ophthalmology; Visit Provider Ophthalmology
DX: G45.3 Amaurosis fugax (principal)
CPT/HCPCS: 93880